=== PATIENT | female | born 1970 | race Caucasian/White ===

== ENCOUNTER 2017-06-26 14:01 | Emergency (ER) | payer SELFPAY ==
[~2017-06-26] VITALS: Ht 160 cm; Wt 53.6 kg
[~2017-06-26 14:01] MED LIST: NEUR300C PO; SERO50TA PO
[2017-06-26 14:07] VITALS: BP 162/85; PULSE 99; RESP 20; TEMP 97.7; O2SAT 100
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
[2017-06-26 17:55] LABS: AUTOMATED NEUTROPHIL # 6.8 TH/MM3 (1.8-7.7); BASOPHIL # 0.1 TH/MM3 (0-0.2); BASOPHIL % 1.3 % (0.0-2.0); EOSINOPHIL # 0.1 TH/MM3 (0-0.4); EOSINOPHIL % 0.6 % (0.0-4.0); HEMATOCRIT 43.4 % (35.0-46.0); HEMOGLOBIN 14.5 GM/DL (11.6-15.3); LYMPH % 25.5 % (9.0-44.0); LYMPHOCYTE # 2.5 TH/MM3 (1.0-4.8); MEAN CELL VOLUME 90.7 FL (80.0-100.0); MEAN CORPUSCULAR HEMOGLOBIN 30.3 PG (27.0-34.0); MEAN CORPUSCULAR HGB CONC 33.5 % (32.0-36.0); MEAN PLATELET VOLUME 9.6 FL (7.0-11.0); MONO % 3.1 % (0.0-8.0); MONOCYTE # 0.3 TH/MM3 (0-0.9); NEUT % 69.5 % (16.0-70.0); PLATELET COUNT 326 TH/MM3 (150-450); RED BLOOD COUNT 4.79 MIL/MM3 (4.00-5.30); RED CELL DISTRIBUTION WIDTH 13.9 % (11.6-17.2); WHITE BLOOD COUNT 9.8 TH/MM3 (4.0-11.0)
--- NOTE | 2017-06-26 18:05 | RADRPT ---
EXAM DATE/TIME: 06/26/2017 17:30 [facility] COMPARISON: CHEST SINGLE AP, February 07, 2017, 19:10. INDICATIONS : Short of breath. MEDICAL HISTORY : None. SURGICAL HISTORY : None. ENCOUNTER: Initial ACUITY: 1 day PAIN SCORE: 0/10 LOCATION: Bilateral chest FINDINGS: A single view of the chest demonstrates the lungs to be symmetrically aerated without evidence of mas s, infiltrate or effusion. The cardiomediastinal contours are unremarkable. Healed fracture of the lateral right 7th rib.. CONCLUSION: The lungs are clear. Heri Pablo MD on June 26, 2017 at 18:03 Board Certified Radiologist. This report was verified electronically.
[2017-06-26 18:33] LABS: ALBUMIN 3.9 GM/DL (3.4-5.0); ALT (GPT) 18 U/L (10-53); AST (GOT) 13 U/L (15-37); BICARBONATE 22.4 MEQ/L (21.0-32.0); BLOOD UREA NITROGEN 18 MG/DL (7-18); CALCIUM 9.3 MG/DL (8.5-10.1); CHLORIDE 110 MEQ/L (98-107); CREATININE 0.76 MG/DL (0.50-1.00); GLOMERULAR FILTRATION RATE 81 ML/MIN (>89); GLUCOSE,RANDOM 86 MG/DL (74-106); SODIUM (NA) 142 MEQ/L (136-145)
[2017-06-26 18:35] VITALS: BP 141/63; PULSE 75; RESP 17; O2SAT 95
[2017-06-26 18:42] LABS: ALKALINE PHOSPHATASE 59 U/L (45-117); TOTAL BILIRUBIN ADULT 0.7 MG/DL (0.2-1.0); TOTAL PROTEIN 7.3 GM/DL (6.4-8.2)
--- NOTE | 2017-06-26 21:49 | EKG ---
Date Performed: 06/26/2017 Time Performed: 17:38:42 PTAGE: 46 years EKG: Sinus rhythm NORMAL ECG I cannot accurately compare EKGs as prior EKG has marked artifact. PREVIOUS TRACING : 02/07/2017 18.45 DOCTOR: Burke Restrepo Interpretating Date/Time 06/26/2017 21:48:11
[2017-06-27] MEDS ORDERED: ALBU6.7H INH (06:38)
[2017-06-27] MEDS ORDERED: PRED-503 PO (06:38)
== END 2017-06-26 19:10 | disposition left against medical advice (07) ==
LOC: NEPD 14:01
DX: F22 Delusional disorders (principal); F31.9 Bipolar disorder, unspecified; R06.02 Shortness of breath; Z79.899 Other long term (current) drug therapy
CPT/HCPCS: 71045; 80053; 80307; 84443; 84484; 85025; 93005; 99285

== ENCOUNTER 2017-06-27 05:31 | Emergency (ER) | payer SELFPAY ==
[~2017-06-27] VITALS: Ht 160 cm; Wt 55.0 kg
[2017-06-27 05:33] VITALS: BP 156/74; PULSE 94; RESP 18; TEMP 97.1; O2SAT 98
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
[2017-06-27] MEDS ORDERED: PRED-503 PO (06:38)
[2017-06-27] MEDS ORDERED: ALBU6.7H INH (06:38)
== END 2017-06-27 06:51 | disposition home or self-care (01) ==
LOC: NEPD 05:31
DX: J06.9 Acute upper respiratory infection, unspecified (principal); T76.21XA Adult sexual abuse, suspected, initial encounter; F17.200 Nicotine dependence, unspecified, uncomplicated
CPT/HCPCS: 99281

== ENCOUNTER 2017-06-27 19:42 | Emergency (ER) | payer SELFPAY ==
[~2017-06-27] VITALS: Ht 160 cm; Wt 55.0 kg
[~2017-06-27 19:42] MED LIST changes: +ALBU6.7H INH; +PRED-503 PO
[2017-06-27 20:07] VITALS: BP 138/89; PULSE 113; RESP 18; TEMP 97.8; O2SAT 97
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
== END 2017-06-27 20:52 | disposition home or self-care (01) ==
LOC: NEPD 19:42
DX: T76.21XA Adult sexual abuse, suspected, initial encounter (principal)
CPT/HCPCS: 99281